=== PATIENT | female | born 1955 | race Caucasian/White ===

== ENCOUNTER → 2016-07-31 | Day surgery (SDC) | payer BC, OTHER ==
[~2016-07-31] MED LIST: ALPRAZOLAM PO; AMBIEN10 MG PO; AVANDAMET 2 MG/1 TA1 PO; BYSTOLIC20 MG PO; CELEBREX PO; CLARITIN D PO; COZAAR PO; DONNATAL1 TA1 PO; HYDRALAZINE HCL50 MG PO; KCL PO; LANTUS100 U/ML SUBQ; LEVEMIR SUBQ; METFORMIN HCL1000 M1 PO; NEURONTIN PO; NEURONTIN800 MG PO; NEXIUM PO; NOVOLOG100 U/ML SUBQ; OXYCODON-ACETA1 EAC1 PO; PERCOCET10 PO; PROTONIX PO; SINGULAIR PO; SYNTHROID PO; TEKTURNA HCT 301 TA1 PO; TOPROL XL PO; ZANTAC PO
--- NOTE | ~2016-07-31 | OR ---
Unit #: [id number] #: [id number] Patient: LESLY CORTÉS [id number] [address] [address] [id number] O MR#: [id number] NAME: LESLY CORTÉS ROOM: Date of Procedure: 07/31/2016 Admission Date: 07/31/2016 Surgeon: Carlos Dunn M.D. : 1955 Attending Physician: Carlos Dunn M.D. Primary Care Physician: Esme Sheppard M.D. OPERATIVE REPORT JOB NOTE: CC: [facility] PREOPERATIVE DIAGNOSES 1. Low back pain, radiculopathy, degenerative lumbar disk disease, spondylolisthesis. 2. Neck pain, cervical radiculopathy, degenerative cervical disk disease. POSTOPERATIVE DIAGNOSES 1. Low back pain, radiculopathy, degenerative lumbar disk disease, spondylolisthesis. 2. Neck pain, cervical radiculopathy, degenerative cervical disk disease. PROCEDURES PERFORMED 1. Lumbar epidural steroid injection with intravenous sedation and fluoroscopic guidance for needle localization. 2. Cervical epidural steroid injection and fluoroscopic guidance for needle localization. INDICATIONS FOR PROCEDURE The patient is a 61-year-old female with previously mentioned diagnosis. She has nonsurgical pathology. She was last treated 8 months ago with epidural steroids at both the cervical and lumbar level with very good response. Prior to that, she had done well for about 9 months following epidural steroids. Based on history, pathology, symptomatology, and treatment options, plan is to repeat epidural steroid injection at the cervical and lumbar spine today. DESCRIPTION OF PROCEDURE The patient was placed in a seated position. Standard monitors were applied. 2 mg of Versed were given for sedation and anxiolysis, which were adequate. Vital signs remained stable. Sterile prep and drape then of lumbar area was performed. The skin then at the L4-L5 level was localized with 1% lidocaine. An 18-gauge Sensbeattead needle was then advanced via loss of resistance technique and fluoroscopic guidance in toward the epidural space. The patient did not complain of pain or paresthesia during needle advancement. After confirming proper positioning with fluoroscopy and radiographic contrast, 80 mg of Depo-Medrol and 4 mL of 0.125% bupivacaine were deposited. The patient tolerated this part of procedure well. Procedure #2: Cervical epidural steroid injection with fluoroscopic guidance. A separate kit was used to sterilely prep and drape the Unit #: [id number] #: [id number] Patient: LESLY CORTÉS patient's cervical spine. The skin then at the C5-C6 level was localized with 1% lidocaine. An 18-gauge SureDone needle was then advanced via hanging drop technique and fluoroscopic guidance in toward the epidural space. After confirming proper positioning with fluoroscopy and radiographic contrast, a dose of 80 mg of Depo-Medrol and 2 mL of 0.25% bupivacaine were deposited. The patient tolerated the procedure otherwise well and was discharged to the recovery room in stable condition. Dictated by... Halina Arizmendi/bernarda TD: 07/31/2016 23:41 JOB #: [id number] OPERATIVE REPORT Page 1 of 1 X Carlos Dunn MD X PROCEDURE OPERATIVE NOTE
== END | disposition home or self-care (01) ==
LOC: CCSC 09:38
DX: M51.16 Intervertebral disc disorders with radiculopathy, lumbar region (principal); M50.10 Cervical disc disorder with radiculopathy, unspecified cervical region; M43.16 Spondylolisthesis, lumbar region; E11.9 Type 2 diabetes mellitus without complications; I10 Essential (primary) hypertension; E66.01 Morbid (severe) obesity due to excess calories; M19.90 Unspecified osteoarthritis, unspecified site
CPT/HCPCS: J1040; J2250

== ENCOUNTER → 2016-08-21 | Day surgery (SDC) | payer BC, OTHER ==
--- NOTE | ~2016-08-21 | OR ---
Unit #: [id number] #: [id number] Patient: LESLY CORTÉS [id number] [address] [place], [place] [address] [id number] O MR#: [id number] NAME: LESLY CORTÉS ROOM: Date of Procedure: 08/21/2016 Admission Date: 08/21/2016 Surgeon: Carlos Dunn M.D. : 1955 Attending Physician: Carlos Dunn M.D. Primary Care Physician: Esme Sheppard M.D. OPERATIVE REPORT PREOPERATIVE DIAGNOSES 1. Back pain, radiculopathy, degenerative disk disease, spondylolisthesis. 2. Neck pain, cervical disk disease, cervical radiculopathy. POSTOPERATIVE DIAGNOSES 1. Back pain, radiculopathy, degenerative disk disease, spondylolisthesis. 2. Neck pain, cervical disk disease, cervical radiculopathy. PROCEDURES PERFORMED 1. Lumbar epidural steroid injection with intravenous sedation and fluoroscopic guidance for needle localization. 2. Cervical epidural steroid injection with fluoroscopic guidance. INDICATIONS FOR PROCEDURE The patient is a 61-year-old female with previously mentioned nonsurgical diagnosis. She has done very well in the past with epidural steroids, last time for about 7 months. She had resurgence of the symptoms. Repeat injection was done 3 weeks ago. The neck and upper extremity decreased by 60% to 70%, back pain and leg pain are greater than 50% better over the last week or so. The left leg was begun to hurt again, it is not quite back down to the baseline. The back and right leg remained somewhat improved. Based on good partial improvement of pathology and symptomatology, we are going to proceed with a repeat epidural steroid injection today. DESCRIPTION OF PROCEDURE Procedure #1: The patient was placed in a seated position. Standard monitors were applied. 2 mg of Versed were given for sedation and anxiolysis, which were adequate. Vital signs remained stable. Sterile prep and drape then of the lumbar area was performed. The skin at the L4-L5 level was localized with 1% lidocaine. An 18-gauge Ziniotead needle was then advanced via loss of resistance technique and fluoroscopic guidance in toward the epidural space. After confirming proper positioning with fluoroscopy and radiographic contrast, 80 mg of Depo-Medrol and 4 mL of 0.125% bupivacaine were deposited. The patient tolerated this part of procedure well. Procedure #2: Cervical epidural steroid injection under fluoroscopic guidance. A separate kit was used to sterilely prep and drape the patient's cervical spine. The skin then at the C5-C6 level was localized Unit #: [id number] #: [id number] Patient: LESLY CORTÉS with 1% lidocaine. An 18-gauge [employer] needle was then advanced via hanging drop technique and fluoroscopic guidance in toward the epidural space. After confirming proper positioning with fluoroscopy and radiographic contrast, 80 mg of Depo-Medrol and 2 mL of 0.25% bupivacaine were deposited. The patient tolerated the procedure otherwise well and was discharged to the recovery room in stable condition. Dictated by... Halina Arizmendi/bernarda TD: 08/22/2016 01:15 JOB #: [id number] OPERATIVE REPORT Page 1 of 1 X Carlos Dunn MD X PROCEDURE OPERATIVE NOTE
== END | disposition home or self-care (01) ==
LOC: CCSC 09:43
DX: M51.16 Intervertebral disc disorders with radiculopathy, lumbar region (principal); M50.10 Cervical disc disorder with radiculopathy, unspecified cervical region; M43.16 Spondylolisthesis, lumbar region; E10.9 Type 1 diabetes mellitus without complications; I10 Essential (primary) hypertension; E66.01 Morbid (severe) obesity due to excess calories; F41.9 Anxiety disorder, unspecified; E03.9 Hypothyroidism, unspecified; Z79.899 Other long term (current) drug therapy; Z88.0 Allergy status to penicillin; Z88.2 Allergy status to sulfonamides; Z79.891 Long term (current) use of opiate analgesic
CPT/HCPCS: 82947; J1040; J2250

== ENCOUNTER → 2016-08-28 | Day surgery (SDC) | payer BC, OTHER ==
--- NOTE | ~2016-08-28 | OR ---
Unit #: [id number] #: [id number] Patient: LESLY CORTÉS [id number] [address] [address] [id number] O MR#: [id number] NAME: LESLY CORTÉS ROOM: Date of Procedure: 08/28/2016 Admission Date: 08/28/2016 Surgeon: Carlos Dunn M.D. : 1955 Attending Physician: Carlos Dunn M.D. Referring Physician: Carlos Dunn M.D. Primary Care Physician: Esme Sheppard M.D. OPERATIVE REPORT PREOPERATIVE DIAGNOSES 1. Low back pain, radiculopathy, spondylolisthesis, degenerative disk disease. 2. Neck pain, cervical radiculopathy, degenerative cervical disk disease. POSTOPERATIVE DIAGNOSES 1. Low back pain, radiculopathy, spondylolisthesis, degenerative disk disease. 2. Neck pain, cervical radiculopathy, degenerative cervical disk disease. PROCEDURE PERFORMED 1. Lumbar epidural steroid injection with intravenous sedation and fluoroscopic guidance for needle localization. 2. Cervical epidural steroid injection with fluoroscopic guidance for needle localization. INDICATIONS FOR PROCEDURE The patient is a 61-year-old female, who had returned back and right greater than left upper extremity pain, low back and bilateral lower extremity pain based on the previously mentioned nonsurgical pathology. In the past, epidural steroid injections have been helpful, last in 03/2015. The patient had 2 epidurals done over the last several weeks, resulted in significant improvement of back and right lower extremity pain. She still is having some left lower extremity burning. The neck and upper extremities are going to about 60% better. She is not quite as she had done in the past, so plan is to repeat a final injection at this point. The patient will follow up back at the pain center. We may determine at that time whether some of her pain will need to be treated medically. DESCRIPTION OF PROCEDURE Procedure #1: The patient was placed in a seated position. Standard monitors were applied. 2 mg of Versed were given for sedation and anxiolysis, which were adequate. Vital signs remained stable. Sterile prep and drape then of the lumbar area was performed. The skin at the L4-L5 level was localized with 1% lidocaine. An 18-gauge Synchro needle was then advanced via loss of resistance technique and fluoroscopic guidance in toward the epidural space. After confirming proper positioning with fluoroscopy and radiographic contrast, 80 mg of Depo-Medrol and 4 mL of 0.125% bupivacaine were deposited. The patient tolerated this part of procedure well. Unit #: [id number] #: [id number] Patient: LESLY CORTÉS Procedure #2: Cervical epidural steroid injection under fluoroscopic guidance. A separate kit was used to sterilely prep and drape the patient's cervical spine. The skin then at the C5-C6 level was localized with 1% lidocaine. An 18-gauge Hust[employer] needle was then advanced via hanging drop technique and fluoroscopic guidance in toward the epidural space. After confirming proper positioning with fluoroscopy and radiographic contrast, 80 mg of Depo-Medrol and 2 mL of 0.25% bupivacaine were deposited. The patient tolerated the procedure otherwise well and was discharged to the recovery room in stable condition. Dictated by... Halina Arizmendi/bernarda TD: 08/28/2016 18:41 JOB #: [id number] OPERATIVE REPORT Page 1 of 1 X Carlos Dunn MD X PROCEDURE OPERATIVE NOTE
== END | disposition home or self-care (01) ==
LOC: CCSC 09:20
DX: M51.16 Intervertebral disc disorders with radiculopathy, lumbar region (principal); M50.10 Cervical disc disorder with radiculopathy, unspecified cervical region; M43.16 Spondylolisthesis, lumbar region; E11.9 Type 2 diabetes mellitus without complications; E66.01 Morbid (severe) obesity due to excess calories; I10 Essential (primary) hypertension; M19.90 Unspecified osteoarthritis, unspecified site; Z88.0 Allergy status to penicillin; Z88.2 Allergy status to sulfonamides; Z79.891 Long term (current) use of opiate analgesic; Z79.4 Long term (current) use of insulin; Z79.899 Other long term (current) drug therapy
CPT/HCPCS: J1040; J2250